=== PATIENT | male | born 1945 | race Caucasian/White ===

== ENCOUNTER 2024-07-26 12:19 | Inpatient (IN) ==
[2024-07-26] MEDS: Furosemide 40 mg/4 ml IV VIAL IV SLOW PU ONE ×2 (12:44→20:48)
[2024-07-26 12:46] LABS: Resp Rate 14
[2024-07-26 12:47] LABS: ABS Eosinophils 0.1 10^3/uL (0.0-0.5); ABS Lymphocytes 1.1 10^3/uL (1.0-4.8); ABS Monocytes 0.8 10^3/uL (0.0-1.1); ABS Neutrophils 6.9 10^3/uL (1.5-7.6); ABS Nucleated RBC 0.01 10^3/ul; Eosinophil % 0.6 %; Hematocrit 44.6 % (38-53); Hemoglobin 14.1 g/dL (13.2-16.3); Lymphocyte % 12.7 %; Mean Corpuscular Hemoglobin 31.1 pg (27-33); Mean Corpuscular Hgb Conc 31.6 g/dL (31-36); Mean Corpuscular Volume 98.4 fL (80-97); Mean Platelet Volume 8.2 fL (7.5-11.2); Nucleated Red Blood Cells % 0.1 %/100WBC (0.0-0.8); Platelet Count 265 10^3/uL (150-450); Red Blood Count 4.53 10^6/uL (4.06-5.63); Red Cell Distribution Width 18.1 % (12-17); White Blood Count 8.9 10^3/uL (3.6-10.2)
[2024-07-26 12:52] LABS: PO2 Arterial 158 mmHg (80-100)
[2024-07-26 12:54] LABS: PCO2 Arterial 79 mmHg (35-45)
[2024-07-26 12:57] LABS: Activated Partial Thrombo Time 31.6 seconds (26.0-38.0); INR 1.47 (0.85-1.14)
[2024-07-26 13:35] LABS: Albumin 3.5 g/dL (3.2-5.2); C Reactive Protein 22.94 mg/L (<8.01); Calcium 8.9 mg/dL (8.6-10.3); Creatinine, Serum 1.08 mg/dL (0.67-1.17); Globulin 3.5 g/dL (2-4); Potassium 5.1 mmol/L (3.5-5.0); eGFR CKD-EPI 70.2 (>60)
[2024-07-26 14:12] LABS: High Sensitivity Troponin 1 Hr 55 pg/mL (<20)
[2024-07-26] MEDS: Furosemide 40 mg/4 ml IV VIAL IV ONE (15:19)
[2024-07-26] MEDS ORDERED: Sulfur Hexaflouride MICROSPHR 25 MG VIAL IV PRN (15:23)
[2024-07-26 16:02] LABS: Magnesium 2.3 mg/dL (1.9-2.7)
[2024-07-26 17:59] LABS: Calcium 8.7 mg/dL (8.6-10.3); Creatinine, Serum 1.05 mg/dL (0.67-1.17); eGFR CKD-EPI 72.7 (>60)
[2024-07-26 18:01] LABS: TSH Ultra Thyroid Stim Horm 2.99 mcIU/mL (0.34-5.60)
[2024-07-26 18:13] LABS: Potassium 4.6 mmol/L (3.5-5.0)
[2024-07-26 18:15] LABS: Ferritin 33.4 ng/mL (24-336); Folate 11.57 ng/mL (5.90-24.80)
[2024-07-26] MEDS: Enoxaparin 40 MG/0.4 ML SYR SUBCUT SCH (19:03)
[2024-07-26 23:26] LABS: Urine Appearance Clear; Urine Bilirubin Negative (Negative); Urine Blood Negative (Negative); Urine Color Light-Yellow; Urine Glucose Negative (Negative); Urine Ketones Negative (Negative); Urine Nitrite Negative (Negative); Urine Protein Negative (Negative); Urine Specific Gravity 1.006 (1.002-1.030); Urine Urobilinogen Negative (Negative)
[2024-07-26 23:43] LABS: Calcium 8.3 mg/dL (8.6-10.3); Creatinine, Serum 0.97 mg/dL (0.67-1.17); Potassium 4.4 mmol/L (3.5-5.0); eGFR CKD-EPI 79.9 (>60)
[2024-07-27 03:28] LABS: ABS Eosinophils 0.1 10^3/uL (0.0-0.5); ABS Lymphocytes 1.1 10^3/uL (1.0-4.8); ABS Monocytes 0.8 10^3/uL (0.0-1.1); ABS Neutrophils 5.5 10^3/uL (1.5-7.6); ABS Nucleated RBC 0.01 10^3/ul; Eosinophil % 1.4 %; Hematocrit 42.3 % (38-53); Hemoglobin 13.8 g/dL (13.2-16.3); Lymphocyte % 15.1 %; Mean Corpuscular Hemoglobin 31.6 pg (27-33); Mean Corpuscular Hgb Conc 32.5 g/dL (31-36); Mean Corpuscular Volume 97.2 fL (80-97); Mean Platelet Volume 8.1 fL (7.5-11.2); Nucleated Red Blood Cells % 0.1 %/100WBC (0.0-0.8); Platelet Count 200 10^3/uL (150-450); Red Blood Count 4.35 10^6/uL (4.06-5.63); Red Cell Distribution Width 17.4 % (12-17); White Blood Count 7.5 10^3/uL (3.6-10.2)
[2024-07-27 03:58] LABS: Calcium 8.3 mg/dL (8.6-10.3); Creatinine, Serum 0.96 mg/dL (0.67-1.17); Potassium 4.2 mmol/L (3.5-5.0); Total Bilirubin 1.5 mg/dL (0.2-1.0); eGFR CKD-EPI 80.9 (>60)
[2024-07-27] MEDS ORDERED: Lorazepam PYXIS KEY PRN (04:16)
[2024-07-27] MEDS: LORazepam 2 mg VIAL 1 ml IV PUSH ONE (04:23)
[2024-07-27 08:36] LABS: Venous Bicarbonate HCO3 37.6 mmol/L (24-28)
[2024-07-27] MEDS: Ferric Gluconate IV 250 MG in NS 0.9% 250 ml 200 ML IVPB SCH (09:01)
[2024-07-27] MEDS ORDERED: OLANZapine IM (NF) 10 MG VIAL IM PRN (09:26)
[2024-07-27] MEDS ORDERED: Haloperidol 5 mg/ml SDV IV/IM 5 MG/ML AMP IV SLOW PU PRN (10:07)
[2024-07-27] MEDS: Furosemide 40 mg/4 ml IV VIAL IV SLOW PU ONE (10:12)
[2024-07-27] MEDS: Albuterol/Ipratropium NEB.SOL (2.5/0.5 MG) 3 ML NEB.SOLN INH SCH (13:21)
[2024-07-27 14:15] LABS: Calcium 8.3 mg/dL (8.6-10.3); Creatinine, Serum 0.94 mg/dL (0.67-1.17); Potassium 3.8 mmol/L (3.5-5.0)
[2024-07-27] MEDS: Digoxin IV 0.5 MG/2 ML AMP (0.25 MG/ML) IV SLOW PU ONE (14:56)
[2024-07-27] MEDS: Digoxin IV 0.5 MG/2 ML AMP (0.25 MG/ML) ONE (14:56)
[2024-07-27] MEDS: Metoprolol Tartrate 5 mg VIAL 5 ml VIAL (1 mg/ml) ONE (15:13)
[2024-07-27] MEDS: Metoprolol Tartrate 5 mg VIAL 5 ml VIAL (1 mg/ml) IV ONE (15:23)
[2024-07-27] MEDS ORDERED: Albuterol 2.5mg/3 ml (0.083%) NEB.SOLN INH PRN (16:10)
[2024-07-27] MEDS: Enoxaparin 80 MG/0.8 ML SYR SUBCUT SCH (22:28)
[2024-07-28 01:08] LABS: Venous Bicarbonate HCO3 37.1 mmol/L (24-28)
[2024-07-28] MEDS: acetaZOLAMIDE IV 250 MG in NS 0.9% 50 ML 50 ML IVPB SCH (02:52)
[2024-07-28 04:06] LABS: ABS Lymphocytes 1.1 10^3/uL (1.0-4.8); ABS Monocytes 0.7 10^3/uL (0.0-1.1); ABS Nucleated RBC 0.03 10^3/ul; Eosinophil % 0.3 %; Hemoglobin 13.6 g/dL (13.2-16.3); Lymphocyte % 12.8 %; Mean Corpuscular Hemoglobin 31.3 pg (27-33); Mean Corpuscular Hgb Conc 31.6 g/dL (31-36); Mean Platelet Volume 8.9 fL (7.5-11.2); Nucleated Red Blood Cells % 0.3 %/100WBC (0.0-0.8); Platelet Count 236 10^3/uL (150-450); Red Blood Count 4.35 10^6/uL (4.06-5.63); White Blood Count 8.9 10^3/uL (3.6-10.2)
[2024-07-28 04:32] LABS: ALT 8 U/L (7-52); AST 17 U/L (13-39); Albumin 2.7 g/dL (3.2-5.2); Alkaline Phosphatase 102 U/L (35-149); Blood Urea Nitrogen 23 mg/dL (6-24); CO2 Carbon Dioxide > 45 mmol/L (22-32); Calcium 8.1 mg/dL (8.6-10.3); Chloride 96 mmol/L (101-111); Creatinine, Serum 0.96 mg/dL (0.67-1.17); Globulin 2.7 g/dL (2-4); Glucose 72 mg/dL (70-100); Sodium 145 mmol/L (135-145); Total Bilirubin 1.5 mg/dL (0.2-1.0); Total Protein 5.4 g/dL (6.4-8.9); eGFR CKD-EPI 80.9 (>60)
[2024-07-28] MEDS: SPIRIVA Respimat (tiotropium) 2.5 mcg/inh Inhaler INH SCH (07:01)
[2024-07-28] MEDS: acetaZOLAMIDE IV 500 MG in NS 0.9% 50 ML 50 ML IVPB SCH (07:20)
[2024-07-28] MEDS ORDERED: Azithromycin 500 mg/250 ml NS 500 MG/250 ML BAG IVPB SCH (08:00)
[2024-07-28] MEDS ORDERED: cefTRIAXone 2 GM ADDV.VIAL 2 GM in NS 0.9% 100 ml BAG 100 ML IV SCH (08:00)
[2024-07-28] MEDS: methylPREDNISolone SOD SUCC 125 mg 2 ML VIAL IV ONE (08:26)
[2024-07-28] MEDS: Doxycycline 100 MG in NS 0.9% 250 ML BAG IVPB SCH (08:28)
[2024-07-28] MEDS: cefTRIAXone 2 gm/50 mL D5W 2 GM/50 ML BAG IV SCH (08:30)
[2024-07-28] MEDS: Furosemide 40 mg/4 ml IV VIAL IV ONE (10:30)
[2024-07-28] MEDS: Acetaminophen IV 1 GM/100ML 1,000 MG/100 ML BAG IV PRN (12:45)
[2024-07-28] MEDS: Acetaminophen IV 1 GM/100ML 1,000 MG/100 ML BAG IV ONE (13:04)
[2024-07-28] MEDS: Albuterol/Ipratropium NEB.SOL (2.5/0.5 MG) 3 ML NEB.SOLN INH SCH (14:00)
[2024-07-28] MEDS: Metoprolol Tartrate 5 mg VIAL 5 ml VIAL (1 mg/ml) IV ONE (14:50)
[2024-07-28 16:01] VITALS: BP 115/65
[2024-07-28] MEDS: methylPREDNISolone SOD SUCC 40 mg/ml 1 ml VIAL IV SCH (16:08)
[2024-07-28] MEDS ORDERED: Morphine 2 MG/ML SYRINGE IV PRN ×2 (16:53→17:05)
[2024-07-28] MEDS ORDERED: Ondansetron 4 mg VIAL 2 MG/ML 2 ml VIAL IV PRN (16:53)
[2024-07-28] MEDS ORDERED: Lorazepam PYXIS KEY PRN ×2 (17:08→20:49)
[2024-07-28] MEDS: Morphine 2 MG/ML SYRINGE IV PRN (18:47)
[2024-07-28] MEDS: LORazepam 2 mg VIAL 1 ml IV PUSH PRN (19:54)
[2024-07-28] MEDS: Scopolamine 1 mg/72hr PATCH TRANSDERM SCH (19:59)
[2024-07-28] MEDS: Scopolamine 1 mg/72hr PATCH ONE (20:38)
[2024-07-28] MEDS: LORazepam 2 mg VIAL 1 ml IV PUSH ONE (21:00)
[2024-07-28] MEDS ORDERED: acetaZOLAMIDE IV 500 MG in NS 0.9% 50 ML 50 ML IVPB SCH (21:00)
[2024-07-29] MEDS: Morphine 2 MG/ML SYRINGE IV PRN (00:18)
== END 2024-07-29 01:13 | disposition expired | DRG 291 ==
LOC: ED 12:19 → EDHOLD 15:32 → ICU 16:48
PROVIDERS: ADMIT Student in an Organized Health Care Education/Training Program; ATTEND Student in an Organized Health Care Education/Training Program